=== PATIENT | male | born 1975 | race Caucasian/White ===

== ENCOUNTER 2021-05-22 00:11 | Emergency (ER) | payer OTHER ==
[2021-05-22 00:20] VITALS: BP 153/97
[2021-05-22] MEDS ORDERED: IBUPROFEN 600 MG TAB PO STA (01:29)
[2021-05-22] MEDS ORDERED: ACETAMINOPHEN TAB 500 MG TAB PO STA (01:29)
--- NOTE | 2021-05-22 02:05 | XR ---
EXAM: XR Chest, 2 Views CLINICAL HISTORY: ITS.REASON XR Reason: Cough; fever TECHNIQUE: Frontal and lateral views of the chest. COMPARISON: No relevant prior studies available. FINDINGS: Lungs: Increased interstitial opacities in the lower lobes. No consolidation. Pleural space: Unremarkable. No pneumothorax. Heart: Unremarkable. No cardiomegaly. Mediastinum: Unremarkable. Bones/joints: Unremarkable. IMPRESSION: Findings concerning for bilateral lower lobe pneumonitis. No consolidation.
[2021-05-22 02:31] VITALS: PULSE 109; RESP 16; TEMP 99.3
--- NOTE | 2021-05-22 02:31 | ED ---
General Adult HPI - General Chief complaint: Fever Stated complaint: Fever, post-op Time Seen by Provider: 05/22/21 01:25 Source: patient Mode of arrival: ambulatory Limitations: no limitations - History of Present Illness Initial comments: 45-year-old male patient presents to the emergency department today for evaluation of fever. He is postop day #4 after having bilateral inguinal hernia repair. States that he developed a fever earlier today and persisted throughout stay. States he is coughing feeding. States he does have some discomfort around the surgical incision sites but states overall he is feeling well. Denies any drainage or redness around the incisions. Denies any increased pain, states his pain has improved since the procedure. He is passing gas and having normal bowel movements. No difficulty urinating. Denies any sputum production with his cough. States he does have a sore throat. Denies any nasal congestion or drainage. He is vaccinated for COVID-19. - Related Data Previous Rx's Medication Instructions Recorded guaiFENesin-DM 600/30MG [Mucinex 2 each PO Q12HR PRN #20 tab 05/22/21 Dm] Allergies Allergy/AdvReac Type Severity Reaction Status Date / Time No Known Allergies Allergy Verified 05/22/21 00:20 Review of Systems ROS Statement: Those systems with pertinent positive or pertinent negative responses have been documented in the HPI. ROS Other: All systems not noted in ROS Statement are negative. Past Medical History Additional Past Medical History / Comment(s): basal cell carcinoma History of Any Multi-Drug Resistant Organisms: None Reported Past Surgical History: Hernia Repair, Orthopedic Surgery Additional Past Surgical History / Comment(s): neck surgery Past Psychological History: No Psychological Hx Reported Smoking Status: Vaper Past Alcohol Use History: Occasional Past Drug Use History: None Reported General Exam Limitations: no limitations General appearance: alert, in no apparent distress, other (This is a well- developed, well-nourished adult male patient in no acute distress. ) Eye exam: Present: normal appearance, PERRL, EOMI. Absent: scleral icterus, conjunctival injection, periorbital swelling ENT exam: Present: mucous membranes moist, TM's normal bilaterally. Absent: normal exam, normal oropharynx (Mild pharyngeal erythema. No tonsillar hypertrophy or exudate. Tonsils are symmetric and uvula is midline.) Respiratory exam: Present: normal lung sounds bilaterally. Absent: respiratory distress, wheezes, rales, rhonchi, stridor Cardiovascular Exam: Present: normal rhythm, tachycardia, normal heart sounds. Absent: systolic murmur, diastolic murmur, rubs, gallop, clicks GI/Abdominal exam: Present: soft, normal bowel sounds, other (Umbilical and lateral abdominal incisions are intact with no drainage. No surrounding erythema. Abdomen soft and nontender.). Absent: distended, tenderness, guarding, rebound, rigid Neurological exam: Present: alert, oriented X3, CN II-XII intact Psychiatric exam: Present: normal affect, normal mood Skin exam: Present: warm, dry, intact, normal color. Absent: rash Course Vital Signs 05/22/21 05/22/21 00:15 02:31 Temperature 100.7 F H 99.3 F Pulse Rate 137 H 109 H Respiratory 20 16 Rate Blood Pressure 153/97 O2 Sat by Pulse 98 98 Oximetry Medical Decision Making - Medical Decision Making 45-year-old male patient presents to the emergency department today for evalu ation for evaluation of cough, sore throat, and fever. 4 days post op from bilateral inguinal hernia repair. Chest xray showed bilateral lower lobe pneumonitis. He did test positive for COVID. I did discuss findings and results with him. Unfortunately does not meet criteria to receive monoclonal antibodies. He is given instructions for supportive care and symptom management. He'll be given Mucinex DM.. Instructed to follow-up with his primary care physician for recheck in 1-2 days. Return parameters were discussed in detail. He verbalizes understanding and agrees with this plan. My attending is Dr. Olguin. - Lab Data Lab Results 05/22/21 05/22/21 Range/Units 01:49 01:49 Coronavirus (PCR) Detected A (Not Detectd) Influenza Type A RNA Not Detected (Not Detectd) Influenza Type B (PCR) Not Detected (Not Detectd) - Radiology Data Radiology results: report reviewed, image reviewed 2 views of the chest are obtained. Report was reviewed in its entirety. Impression by Dr. Mejia shows findings concerning for bilateral lower lobe pneumonitis. No consolidation. Disposition Clinical Impression: COVID-19 Disposition: HOME SELF-CARE Condition: Good Instructions (If sedation given, give patient instructions): Coronavirus Disease 2019 (COVID-19), Fever in Adults (ED) Additional Instructions: Tips to help you feel better: -Maintain adequate fluid intake - especially water. -Rest, you are healing your body will require extra sleep. -Eat even if you do not feel like it - broth, jello, toast are fine if you cannot eat full meals. -Take tylenol and motrin alternating (if you have no allergies or have not been instructed to avoid these medications) to help with body aches and fevers. -Obtain over the counter vitamin C, zinc, and vitamin D3. -Take medications as prescribed. Follow-up with your primary care physician for recheck in 1-2 days. Return for any new, worsening, or concerning symptoms. Prescriptions: guaiFENesin-DM 600/30MG [Mucinex Dm] 2 each PO Q12HR PRN #20 tab PRN Reason: Cough Is patient prescribed a controlled substance at d/c from ED?: No Referrals: Pola Pitts MD [Primary Care Provider] - 1-2 days Time of Disposition: 02:31
== END 2021-05-22 02:39 | disposition home or self-care (01) ==
LOC: EC 00:11
DX: U07.1 COVID-19 (principal); F17.290 Nicotine dependence, other tobacco product, uncomplicated
CPT/HCPCS: 71046; 87502; 87635; 99283